=== PATIENT | male | born 1995 | race Caucasian/White ===

== ENCOUNTER 2022-04-29 17:02 | Emergency (ER) | payer BC, OTHER ==
[2022-04-29] MEDS ORDERED: Octyl 2-Cyanoacrylate 1 g/1 mL 1 APPLIC PEN TOP ONE (18:06)
== END 2022-04-29 19:04 | disposition home or self-care (01) ==
LOC: MW.ED 17:02
DX: S01.81XA Laceration without foreign body of other part of head, initial encounter (principal); S01.512A Laceration without foreign body of oral cavity, initial encounter; Z79.899 Other long term (current) drug therapy; W22.8XXA Striking against or struck by other objects, initial encounter; Y99.0 Civilian activity done for income or pay
CPT/HCPCS: 12011; 99282